=== PATIENT | male | born 1970 | race Caucasian/White ===

== ENCOUNTER 2025-02-17 09:23 | Emergency (ER) | payer SELFPAY ==
[2025-02-17] VITALS (8 sets, daily range): BP systolic 119–147; BP diastolic 58–102; BMI 40.9
[2025-02-17 10:11] LABS: % Basophils 1.1 % (0-2); % Immature Granulocytes 0.3 % (0-0.5); % Lymphocytes 17.9 % (20.5-51.1); % Monocytes 6.7 % (1.7-9.3); Absolute Basophils 0.1 10^3/uL (0-0.2); Absolute Eosinophils 0.1 10^3/uL (0-0.7); Absolute Lymphocytes 1.3 10^3/uL (1.2-3.4); Absolute Monocytes 0.5 10^3/uL (0.1-0.6); Absolute Neutrophils 5.1 10^3/uL (1.4-6.5); Hematocrit 47.9 % (39.0-52.0); Mean Corp Hgb Conc. 33.4 g/dL (33.0-37.0); Mean Corpuscular Hgb 27.6 pg (27.0-31.0); Mean Corpuscular Volume 82.7 fL (80.0-94.0); Mean Platelet Volume 10.2 fL (7.4-10.4); Nucleated Red Blood Cells % 0 % (-); Platelet Count 268 10^3/uL (130-400); Red Blood Cell Count 5.79 10^6/uL (4.70-6.10); Red Cell Dist. Width 14.7 % (11.5-14.5)
[2025-02-17 10:25] LABS: ALT (SGPT) 27 U/L (0-50); AST (SGOT) 41 U/L (17-59); Albumin 4.1 g/dl (3.5-5.0); Alkaline Phosphatase 82 U/L (38-126); Blood Urea Nitrogen 17 mg/dl (9-20); Calcium 8.8 mg/dl (8.4-10.2); Carbon Dioxide 26 mmol/L (22-30); Chloride 108 mmol/L (98-107); Estimated Creatinine Clearance 82 ml/min; Glucose 105 mg/dl (70-99); Potassium 4.7 mmol/L (3.5-5.1); Sodium 141 mmol/L (135-145); Total Bilirubin 0.9 mg/dl (0.2-1.3); Total Protein 6.6 g/dl (6.3-8.2); eGFR 55.67
[2025-02-17 10:35] LABS: Troponin I < 0.012 ng/ml
--- NOTE | 2025-02-17 12:29 | CON.CAR ---
Addendum entered and electronically signed by Mark Anthony Montiel MD 02/17/25 16:00:
54-year-old man with dull aching in his chest occurring 4 out of 7 days over the last month or 2 and lasting minutes, not clearly exertional. Also with some dizziness. Is seen in [facility] ER yesterday, recommended to undergo stress testing
with troponin that was minimally detectable, left the hospital but returned again today. First troponin here is undetectable. EKGs look like old inferior OH going back several years. No acute changes. Reported head CT yesterday at [facility].
PMH: Hypercholesterolemia
Family history: Father with CAD in his 50s
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
Rest of history as below.
Initial blood pressure 137/92, now 120 over 70s, pulse 70s, very muscular, head neck exam unremarkable, no acute distress, lungs are clear regular rate and rhythm without murmurs, abdomen benign extremities without clubbing cyanosis or edema, neuro
nonfocal
ECG: Sinus rhythm, inferior myocardial infarction
Normal CBC, troponin negative x 2, creatinine is 1.5
Impression:
See below as per Kerri Sanchez. Reviewed in detail and agree, unless otherwise specified
Chest pain
Minimally detectable troponin
Abnormal EKG
Hypercholesterolemia
Plan:
His symptoms are largely atypical, but he had a troponin yesterday that was minimally detectable, currently undetectable. His EKG is abnormal but has been stable over time. His echo does not show any inferior wall motion abnormality, though there
is dropout in the basal inferior and inferolateral segments which makes interpretation difficult.
We discussed inpatient versus outpatient strategies. We discussed stress testing and cardiac catheterization. We agreed that with 2 negative troponins and no wall motion abnormality we will set him up for an outpatient stress test, likely a
nuclear perfusion study.
Further management can be based upon the results of his echo.
Will recommend aspirin 81 mg a day until issues have been resolved.
Original Note:
Consultation
Consultation Request
Date/Time Consultation Requested: 02/17/2025,1145
Date/Time Consultation Performed: 02/17/2025, 1230
Requesting Provider: Daniel Barton
Performing Provider: YULISA Riley for Dr. Montiel
Reason for Consultation: Chest pain
Medical History
-
Chief Complaint: Chest pain
History of Present Illness:
54-year-old male with history of hyperlipidemia, GERD, obstructive sleep apnea presents to [facility] today for evaluation of intermittent chest pain and dizziness. He reports a 2-month history of an intermittent dull ache on the left side of his chest
occurring daily, lasting up to 20 to 30 minutes, no radiation, occasionally occurs with exertion but not consistently and can also occur at rest, occasionally associated with shortness of breath and/or diaphoresis but not consistently. Yesterday
he was driving and had acute onset dizziness with pins and needle sensation down both his arms, dullness in his chest, and felt disoriented and confused. He stopped driving, ate something, but did not feel any better. He presented to the [facility]. High-sensitivity troponin initially 24, repeat 15. EKG with normal sinus rhythm and inferior Q waves. CT of the head and CXR negative per patient report. Blood work notable for creatinine 1.46. He was advised to stay for an
echocardiogram and stress test but wanted to come home and be evaluated more locally.
He woke up this morning and again had the dull aching sensation in his chest which prompted him to come to [facility] ED for evaluation.
Reports occasional palpitations, no syncope.
He exercises daily, weightlifting, and some days experiences the dull chest ache with exercise but other days does not.
ED eval:
Labs: Troponin less than 0.012, BUN/creatinine 17/1.5, NA 141, K4.7, hemoglobin 16
EKG: Normal sinus rhythm, inferior infarct. EKG compared to previous EKG from 03/2023. At that time had small inferior Q waves
Past medical history:
Obstructive sleep apnea, on CPAP
GERD
Hyperlipidemia
Patient seen by Fady Luciano MD for preventative cardiology visit in 2022 and at that time creatinine was 1.47 thought to be elevated due to his large muscle mass. Was started on atorvastatin.
Past Medical History
Past Medical History: Other (As above)
Past Surgical History: Other (Tonsillectomy, deviated septum, vasectomy)
Social History
Tobacco: Former Smoker
Alcohol: Occasional
Drug: None
Allergies / Home Medications
Allergy/AdvReac Type Severity Reaction Status Date / Time
No Known Allergies Allergy Unverified 02/17/25 09:28
Review of Systems
-
History Source: Patient
All other systems: Negative unless noted
Physical Exam
Vital Signs
Temp Pulse Resp BP Pulse Ox
98.3 F 77 19 119/60 92
02/17/25 09:24 02/17/25 11:15 02/17/25 11:15 02/17/25 11:00 02/17/25 11:15
Lab Results
02/17/25 10:03
02/17/25 10:03
Troponin I < 0.012 ng/ml 02/17/25 10:03
GEN: No distress, awake, Ox3
HEENT: supple, anicteric, mmm
LUNGS: CTA, no wheezes/rales
CV: Reg, S1/S2, no murmur. Chest painnot reproducible with palpation of chest
ABD: soft, BS+, NT/ND
EXT: No edema
NEURO: Gross non-focal
SKIN: No rash
Impression / Plan
-
PCP: Mauricio De Santiago
Prim Percolator Operator: Fady Luciano
Impression:
Chest pain
abnl EKG
hyperlipidemia
LIDA on CPAP
GERD
elevated creatinine
Previous CV testing:
EKG 04/05/2023: NSR, small inf Q waves
EKG 09/03/2021: NSR small inf Q waves
Plan:
54-year-old male with history of hyperlipidemia, GERD, obstructive sleep apnea presents to [facility] today for evaluation of intermittent chest pain and dizziness. Reports 2-month h/o intermittent L sided dull chest ache, no radiation occ assoc SOB
and/or diaphoresis. Yesterday had acute onset dizziness with pins and needle sensation down both his arms, dullness in his chest, and felt disoriented and confused. Seen at [facility] ED and High-sensitivity troponin initially elevated at 24,
repeat 15. EKG with normal sinus rhythm and inferior Q waves. CT of the head and CXR negative per patient report. Blood work notable for creatinine 1.46. Recurrent chest ache this am prompting ED eval.
CP
-troponin negative x 2
-EKG compared to previous EKG tracings from 2021 and 2022, inferior Q waves also present at those times
-checking echo, if normal, ok for d/c and check outpt stress MIBI
-if echo abnl, t/c cath
-cont statin
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
Data Reviewed
-
EKG: Tracing Personally Visualized and interpreted
Labs: Labs Reviewed by me
[2025-02-17 13:50] LABS: Troponin I < 0.012 ng/ml
--- NOTE | 2025-02-17 15:48 | ED.GENMED ---
History of Present Illness
General
Chief Complaint: Chest Pain
Source: patient
Time Seen by Provider: 02/17/25 09:33
History of Present Illness
History of Present Illness:
Note:
CHIEF COMPLAINT(S)
Chest pain and upper extremity paresthesia.
HISTORY OF PRESENT ILLNESS
The patient is a 54-year-old male who presented with episodes of chest pain, described as a dull ache that comes and goes, initially noticed a few months ago. The pain is not crippling but varies in intensity, sometimes worsening with exertion. The
patient also reported experiencing disorientation and 'pins and needles' in the hands and arms, which feel cold. These symptoms were first noticed during a fishing trip to [place], prompting a visit to the emergency department. At that time, the
patients troponin level was elevated at 25, which decreased on subsequent testing. He declined admission for further testing, preferring to follow up with his screw machine hand closer to home.
The chest pain recurred this morning, leading to his return to the emergency department. The patient has a history of panic attacks but no history of heart arrhythmias or prior heart attacks. He denies a history of smoking in the last 32 years,
reports generally good blood work, and has a history of elevated LDL cholesterol.
ADDITIONAL HISTORY OBTAINED FROM SOURCES OTHER THAN THE PATIENT
According to prior emergency department records, the patients chest X-ray was reviewed and deemed clear by the treating physician, though pending official radiologist confirmation. The patient has been advised to receive further evaluation by a
screw machine hand for possible cardiac issues.
CHRONIC MEDICAL CONDITIONS SIGNIFICANTLY AFFECTING CARE
Chronic conditions affecting care: hypertension, hypercholesterolemia.
SOCIAL DETERMINANTS AFFECTING HEALTH
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
REVIEW OF SYSTEMS
- Cardiovascular: Intermittent chest pain described as a dull ache. No recent history of heart arrhythmias or myocardial infarction.
- Neurological: Episodes of disorientation and upper extremity paresthesia. History of panic attacks.
- Respiratory: No respiratory distress.
PHYSICAL EXAM
- Mental Status: Awake, alert, and oriented.
- Respiratory: No respiratory distress; lungs are clear and equal bilaterally.
- Cardiovascular: Regular heart rhythm without murmur. No lower extremity edema.
- Neurological: Cranial nerves grossly intact; no focal motor deficits.
- Integumentary: Skin is warm, dry, and well-perfused. Upper and lower extremities are warm.
DIFFERENTIAL DIAGNOSIS
The Differential Diagnosis includes, in no particular order and is not limited to:
1. Acute Coronary Syndrome
2. Angina Pectoris
3. Panic Disorder
4. Peripheral Neuropathy
5. Hyperventilation Syndrome
6. Gastroesophageal Reflux Disease (GERD)
7. Costochondritis
8. Cervical Radiculopathy
9. Anxiety Disorder
10. Myocardial Infarction
CARE-UPDATE
02/17/25 - 12:49
Patient remains stable and pain-free, troponin-negative. Case discussed with cardiology, who will evaluate the patient at bedtime. We have obtained records from [facility]
CARE-UPDATE
02/17/25 - 13:06
Patient to undergo an echocardiogram as advised by cardiology. Plan to repeat troponin levels.
EKG
My independent EKG interpretation is:
- Normal sinus rhythm
- Normal axis
- Presence of Q waves in inferior leads III and aVF
- No other significant ST-segment changes
Disposition:
SUMMARY OF ENCOUNTER
The patient, a 54-year-old male, presented to the emergency department with episodes of chest pain described as a dull ache and upper extremity paresthesia, noting disorientation and 'pins and needles' sensations. The pain recurred this morning
after a previous emergency visit where elevated troponin was noted. The patient has a history of hypertension, hypercholesterolemia, and panic attacks, complicating the diagnostic picture. In the emergency department, an EKG showed normal sinus
rhythm with Q waves in inferior leads but no significant ST changes. Cardiology was consulted, and outpatient follow-up with an echocardiogram and stress test was advised. The patient remains stable and pain-free with negative troponin.
DISPOSITION
The patient is cleared for discharge with plans for outpatient follow-up, including a stress test.
MANAGEMENT OF THE PATIENTS CARE WAS DISCUSSED WITH
Case was discussed with cardiology, who concurred with the outpatient management plan.
INDEPENDENT REVIEW OF LABS AND INTERPRETATION OF TESTS
My independent review of the troponin levels is negative times two. Hemoglobin is normal, showing no abnormalities. Renal function was slightly elevated with creatinine at 1.5, mildly elevated from prior levels, possibly related to the patients
large muscular build.
MEDICAL DECISION MAKING
1. Number & Complexity of Problems: Chronic conditions affecting care: hypertension, hypercholesterolemia, panic disorder. Differential diagnoses considered include acute coronary syndrome, myocardial infarction, and anxiety disorder.
2. Data Reviewed:
- Category 1: Labs and imaging (EKG) were reviewed.
- Category 2: External notes from a prior visit to [facility] were reviewed.
- Category 3: Discussed case with cardiology.
PATHOLOGIES TO CONSIDER
- Acute coronary syndrome (chest pain with risk factors)
- Myocardial infarction (episodic chest pain with prior elevated troponin)
- Peripheral neuropathy (upper extremity paresthesia)
Phy Exam
Physical Exam
Physical Exam:
.
Scores
Heart Score for Chest Pain Patients
STEMI patient?: No
History: Slightly or Non-Suspicious
ECG: Normal
Age: >45 - <65 years
Risk Factors: 1 or 2 Risk Factors
Troponin: </= Normal Limit
Heart Score for Chest Pain Patients: 2
Heart Score Risk: 2.5% MACE over next 6 weeks
Course
Orders/Labs/Results
Orders:
Orders
02/17/25 09:29
EKG [Electrocardiogram (*1)] Urgent
Reason for Study: Chest Pain
EKG- Treatment ONCE
02/17/25 10:03
Complete Blood Count/With Diff Urgent
Comprehensive Metabolic Panel Urgent
Troponin I Urgent
02/17/25 13:04
Echo 2D MMode Color/Doppler Routine
Reason for Study: chest pain, SOB, abnl EKG
02/17/25 13:07
EKG [Electrocardiogram (*1)] Urgent
Reason for Study: Chest Pain
Comment: 2nd troponin
02/17/25 13:08
EKG- Treatment ONCE
02/17/25 13:15
Troponin I Urgent
02/17/25 16:00
Aspirin Low Dose EC [Aspir Low (Enteric Coated)] 81 mg PO DAILY
Abnormal Lab Results
02/17/25
10:03
RDW 14.7 H %
(11.5-14.5)
Lymphocytes % 17.9 L %
(20.5-51.1)
Chloride 108 H mmol/L
(98-107)
Creatinine 1.5 H mg/dL
(0.7-1.3)
Glucose 105 H mg/dl
(70-99)
02/17/25 10:03
02/17/25 10:03
Vital Signs
Initial and Last Documented VS:
Initial Vital Signs
Temp Pulse Resp BP Pulse Ox
98.3 F 74 18 147/91 97
02/17/25 09:24 02/17/25 09:24 02/17/25 09:24 02/17/25 09:24 02/17/25 09:24
Last Documented Vital Signs
Temp Pulse Resp BP Pulse Ox
98.3 F 78 22 129/73 95
02/17/25 09:24 02/17/25 14:00 02/17/25 14:00 02/17/25 14:00 02/17/25 15:52
*Pulse Oximetry
SaO2: 95
Oxygen Mode of Delivery: Room air
Patient hypoxic: no
*Critical Care Note
Total Time (30-74mins, 75-104mins- exclusive of procedures): Not Applicable
ED Attending Note
-
Portions of this chart may have been created with voice recognition software.� Occasional wrong word or��sound alike� substitutions may have occurred due to the inherent limitations of voice recognition software.
Discharge Plan
Departure
Patient Disposition: Home (Routine Discharge)
Date of Disposition: 02/17/25
Time of Disposition: 15:51
Patient with high blood pressure during this ER visit?: No
Discharge Problem:
Chest pain
Instructions: Chest Pain DCA Follow Up
Referrals:
Mauricio De Santiago DO [Family Provider, Family Practice]
Activity Restrictions/Additional Instructions:
Please take 81 mg of aspirin a day. Please avoid strenuous or exertional activity until cleared by cardiology. Please see cardiology in the next 48 hours for reevaluation. Return immediately for worsening pain, shortness breath, palpitations,
sweating, nausea, weakness of any kind, numbness, tingling or any other concerns.
Cardiology has been notified and a follow up appointment has been requested. Someone will call you on the next business day to schedule a follow up appointment.
Interventions
Interventions:
*General Assessment Last Done: 02/17/25 09:47
*Neglect/Abuse Screening Last Done: 02/17/25 11:17
*ED- Fall Risk Assessment Last Done: 02/17/25 09:47
*ED COVID-19 Vaccine History Last Done: 02/17/25 09:47
ED- Cardiac Assessment Last Done: 02/17/25 09:47
Discharge Date and Time
Print Language: BENGALI
[2025-02-17] MEDS: ASPIR LOW (ENTERIC COATED) 81 MG PO (15:50)
== END 2025-02-17 16:18 | disposition home or self-care (01) ==
LOC: EMR 09:23
PROVIDERS: EMERGENCY PHYSICIAN Emergency Medicine; FAMILY PHYSICIAN Family Medicine
DX: R07.89 Other chest pain (principal); E78.00 Pure hypercholesterolemia, unspecified; G47.33 Obstructive sleep apnea (adult) (pediatric); I11.9 Hypertensive heart disease without heart failure; K21.9 Gastro-esophageal reflux disease without esophagitis; Z82.49 Family history of ischemic heart disease and other diseases of the circulatory system; Z87.891 Personal history of nicotine dependence; Z90.89 Acquired absence of other organs
CPT/HCPCS: 99283; 80053; 84484; 85025; 93005; 93306

== ENCOUNTER → 2025-02-25 08:14 | Outpatient (REF) | payer OTHER, SELFPAY | LOC: RCS 08:14 | PROVIDERS: ATTENDING PHYSICIAN Internal Medicine Cardiovascular Disease; FAMILY PHYSICIAN Family Medicine; OTHER PHYSICIAN Nurse Practitioner | DX: R07.9 Chest pain, unspecified (principal) | CPT/HCPCS: 78452; 93017; A9500 ==

== ENCOUNTER → 2025-04-08 10:30 | Outpatient (REF) | payer OTHER, SELFPAY | LOC: RAD 10:30 | PROVIDERS: ATTENDING PHYSICIAN Internal Medicine Cardiovascular Disease; FAMILY PHYSICIAN Family Medicine | DX: R07.89 Other chest pain (principal); R94.39 Abnormal result of other cardiovascular function study | CPT/HCPCS: 75574; Q9967 ==